=== PATIENT | female | born 1990 | race Caucasian/White ===

== ENCOUNTER 2018-07-14 11:08 | Emergency (ER) | payer OTHER ==
[~2018-07-14] VITALS: Ht 162.6 cm; Wt 62.7 kg
[2018-07-14] MEDS ORDERED: METOCLOPRAMIDE HCL 5 MG/ML 2 ML VIAL IVP ONE (12:30)
[2018-07-14] MEDS ORDERED: SODIUM CHLORIDE 0.9% 500 ML IV ONE (12:30)
[2018-07-14] MEDS ORDERED: DiphenhydrAMINE HCL 50 MG/ML VIAL IVP ONE (12:30)
[2018-07-14 13:39] VITALS: BP 133/91
== END 2018-07-14 14:35 | disposition home or self-care (01) ==
LOC: EMS 11:09
DX: R51 Headache (principal); R11.0 Nausea
CPT/HCPCS: 70450; 81025; 96374; 96375; 99284; J1200; J2765; J7040